=== PATIENT | female | born 1975 | race Caucasian/White ===

== ENCOUNTER 2021-06-17 09:56 | Outpatient (CLI) | payer OTHER ==
[~2021-06-17 09:56] MED LIST: PROTONIX40 MG; SYNTHROID150 MCG
== END 2021-06-17 10:00 | disposition home or self-care (01) ==
LOC: SONOGRAMA 09:56
PROVIDERS: ATTEND Pathology Anatomic Pathology & Clinical Pathology
DX: C73 Malignant neoplasm of thyroid gland (principal)